=== PATIENT | male | born 1975 | race Asian ===

== ENCOUNTER 2025-07-06 01:30 | Emergency (ER) | payer MEDICAID, OTHER ==
[~2025-07-06] VITALS: Ht 165.1 cm; Wt 80.9 kg
[2025-07-06] MEDS: ONDANSETRON HCL 4 MG/2 ML VIAL IVP ONE (01:52)
[2025-07-06 01:54] LABS: PLATELET COUNT (AUTO) 201 K/uL (150-450); RED BLOOD CELL COUNT(AUTO) 4.67 MIL/uL (4.50-5.90); RED CELL DISTRIBUTION WIDTH 13.0 % (11.5-14.5); WHITE BLOOD COUNT (AUTO) 7.3 K/uL (4.5-11.0)
[2025-07-06 02:04] LABS: CALCIUM, TOTAL 8.5 mg/dL (8.8-10.5); CREATININE 0.69 mg/dL (0.60-1.30); GLOMERULAR FILTR. RATE CALC > 60 mL/min (>60); GLUCOSE,RANDOM 192 mg/dL (70-110); SODIUM SERUM 136 mmol/L (136-145)
[2025-07-06 02:09] LABS: ASPARTATE AMINOTRANSFERASE 25.0 U/L (15-37); TOTAL PROTEIN, SERUM 7.9 g/dL (6.4-8.2)
[2025-07-06 02:19] LABS: APPEARANCE,URINE CLEAR (CLEAR); GLUCOSE, URINE (UA) >=1000 mg/dL (NEGATIVE); LEUKOCYTE ESTERASE ,URINE NEGATIVE (NEGATIVE); NITRATE,URINE NEGATIVE (NEGATIVE); OCCULT BLOOD,URINE NEGATIVE (NEGATIVE); SPECIFIC GRAVITIY, URINE 1.022 (1.003-1.030)
[2025-07-06 02:20] LABS: SQUAMOUS EPITHELIAL CELL,UR Few /LPF (None Seen)
[2025-07-06 02:24] LABS: UREA NITROGEN, BLOOD 15 mg/dL (7-18)
[2025-07-06] MEDS: IBUPROFEN 400 MG TABLET PO ONE (04:09)
[2025-07-06] MEDS: ACETAMINOPHEN 500 MG TABLET PO ONE (04:09)
[2025-07-06 04:50] VITALS: BP 132/79; PULSE 71; RESP 18; TEMP 98.3; O2SAT 98
== END 2025-07-06 05:36 | disposition home or self-care (01) ==
LOC: EMS 01:32
DX: K80.20 Calculus of gallbladder without cholecystitis without obstruction (principal); R10.11 Right upper quadrant pain; R11.0 Nausea; E11.65 Type 2 diabetes mellitus with hyperglycemia; I10 Essential (primary) hypertension
CPT/HCPCS: 99285; 96374; 76705; 96375; 80048; 80076; 81001; 82962; 83690; 85025; 36415; J1171; J2405